=== PATIENT | male | born 1965 | race Two or more races ===

== ENCOUNTER 2020-01-23 09:17 | Day surgery (SDC) | payer OTHER ==
[~2020-01-23] VITALS: Ht 170.2 cm; Wt 68.0 kg
[2020-01-23] VITALS (10 sets, daily range): BP systolic 101–145; BP diastolic 57–87
--- NOTE | 2020-01-23 07:31 | Operative Note - PDOC ---
Operative Note Operative Note Pre-op Diagnosis: right shoulder rc tear, impingement Procedure: see op report Post-op Diagnosis: same as pre-op plus Operative Findings: consistent w/pre-op dx studies Anesthesia: regional Specimen: none Complications: none Condition: stable Estimated Blood Loss: none Implant(s) used?: No Artis Cunha MD Jan 23, 2020 07:31
--- NOTE | 2020-01-23 07:31 | Pre-Procedure Note/Attestation ---
Pre-Procedure Note/Attestation Complete Prior to Procedure Planned Procedure: right Procedure Narrative: shoulder arthroscopy, sad, possible rc repair Indications for Procedure Pre-Operative Diagnosis: right shoulder rc tear, impingement Attestation I attest that I discussed the nature of the procedure; its benefits; risks and complications; and alternatives (and the risks and benefits of such alternatives ), prior to the procedure, with the patient (or the patient's legal outside sales representative). I attest that, if there was a reasonable possibility of needing a blood transfusion, the patient (or the patient's legal outside sales representative) was given the [facility] standardized written summary, pursuant to the Hoang Stigler Blood Safety Act ([place] Health and Safety Code # 1645, as amended). I attest that I re-evaluated the patient just prior to the surgery and that there has been no change in the patient's H&P, except as documented below: Artis Cunha MD Jan 23, 2020 07:31
[~2020-01-23 09:17] MED LIST: PROBIOTIC1 EAC5 PO; ceFAZolin 1gm IVPB IVPB ONE; celeBREX 200mg Cap **SURGERY PATIENTS ONLY ORAL ONE; oxyCONTIN 20mg tab ORAL ONE
[2020-01-23] MEDS ORDERED: oxyCONTIN 20mg tab ORAL ONE (10:05)
[2020-01-23] MEDS ORDERED: celeBREX 200mg Cap **SURGERY PATIENTS ONLY ORAL ONE (10:05)
[2020-01-23] MEDS ORDERED: Lidocaine 1% MPF 10mg/ml 5ml ONE (11:23)
[2020-01-23] MEDS ORDERED: Dexamethasone 4mg/ml vial ONE ×2 (11:23→11:26)
[2020-01-23] MEDS ORDERED: Propofol 200mg/20ml IV ONE (11:23)
[2020-01-23] MEDS ORDERED: LR 1000ml 1,000 ML IVLG SCH (11:25)
--- NOTE | 2020-01-23 11:26 | Anethesia Preoperative Eval ---
Anesthesia Pre-op PMH/ROS General Date of Evaluation: Jan 23, 2020 Time of Evaluation: 11:57 Anesthesiologist: Kala ASA Score: ASA 2 Mallampati Score Class I : Soft palate, uvula, fauces, pillars visible Class II: Soft palate, uvula, fauces visible Class III: Soft palate, base of uvula visible Class IV: Only hard plate visible Mallampati Classification: Class II Surgeon: Alphonse Diagnosis: R Shoulder Pain Surgical Procedure: R Shoulder Arthroscopy Anesthesia History: none Family History: no anesthesia problems Allergies: Coded Allergies: No Known Allergies (Unverified , 01/21/20) Medications: see eMAR Patient NPO?: Yes Anesthesia Pre-op Phys. Exam Physician Exam Last Vital Signs Date Time Temp Pulse Resp B/P (MAP) Pulse Ox O2 Delivery O2 Flow Rate FiO2 01/23/20 09:53 Room Air 01/23/20 09:50 97.1 58 18 133/79 97 Constitutional: NAD Neurologic: CN 2-12 intact Cardiovascular: RRR Respiratory: CTA Gastrointestinal: S/NT/ND Airway Exam Mallampati Score: Class II MO: full ROM: full Teeth: missing Dentures: upper Anesthesia Pre-op A/P Risk Assessment & Plan Assessment: ASA 2 Plan: GA, SED, R Supraclavicular Block Status Change Before Surgery: No Pre-Antibiotics Dru Gram Ancef IV Given Within 1 Hr of Incision: Yes Time Given: 12:41 Leonel Armendariz MD Jan 23, 2020 11:26
[2020-01-23] MEDS ORDERED: Ropivacaine 5mg/ml Vial 20ml INJ ONE (11:27)
[2020-01-23] MEDS ORDERED: oxyCODONE HCL/Acetaminophen 5/325mg ORAL PRN (11:30)
[2020-01-23] MEDS ORDERED: Labetalol 5mg/ml 20ml vial IV PRN (11:30)
[2020-01-23] MEDS ORDERED: DiphenhydrAMINE 50mg/ml Inj IVP PRN (11:30)
[2020-01-23] MEDS ORDERED: HYDROcodone/Acetamin 7.5/325 tab ORAL PRN (11:30)
[2020-01-23] MEDS ORDERED: LORazepam Inj 2mg/ml 1ml IV PRN (11:30)
[2020-01-23] MEDS ORDERED: Hydromorphone 0.5mg/0.5ml inj IVP PRN (11:30)
[2020-01-23] MEDS ORDERED: Midazolam 2mg/2ml Inj IVP PRN (11:30)
[2020-01-23] MEDS ORDERED: Ketorolac 30mg Inj IV PRN ×2 (11:30)
[2020-01-23] MEDS ORDERED: HYDROcodone/Acetamin 5/325 tab ORAL PRN ×2 (11:30→20:18)
[2020-01-23] MEDS ORDERED: Atropine Sulfate 0.4mg/ml inj IVP PRN (11:30)
[2020-01-23] MEDS ORDERED: Meperidine 25mg/0.5ml Inj (FOR RIGORS ONLY) IV PRN (11:30)
[2020-01-23] MEDS ORDERED: fentaNYL 100 mcg/2 mL IV PRN (11:30)
[2020-01-23] MEDS ORDERED: Metoclopramide 10mg/2ml Inj IVP PRN (11:30)
[2020-01-23] MEDS ORDERED: Sterile Water Irrig 1000ml IRRIG ONE (12:00)
[2020-01-23] MEDS ORDERED: LR 1000ml ONE (12:00)
[2020-01-23] MEDS ORDERED: EPINEPHrine 1mg/1ml Amp ONE (12:12)
[2020-01-23] MEDS ORDERED: Kenalog-40 1ml Vial ONE (12:12)
[2020-01-23] MEDS ORDERED: Ketorolac 30mg Inj ONE (12:12)
[2020-01-23] MEDS ORDERED: Duramorph PF 5mg/10ml amp ONE (12:13)
[2020-01-23] MEDS ORDERED: NS Irrig 4000ml IRRIG ONE ×4 (12:30→13:28)
--- NOTE | 2020-01-23 13:05 | Immediate Post-Op Evaluation ---
Immediate Post-Op Evalulation Immediate Post-Op Evalulation Procedure: R Shoulder Arthroscopy Date of Evaluation: Jan 23, 2020 Time of Evaluation: 14:09 IV Fluids: 600 LR Blood Products: 0 Estimated Blood Loss: 12 Urinary Output: 0 Blood Pressure Systolic: 101 Blood Pressure Diastolic: 57 Pulse Rate: 57 Respiratory Rate: 16 O2 Sat by Pulse Oximetry: 97 Temperature (Fahrenheit): 98.2 Pain Score (1-10): 1 Nausea: No Vomiting: No Complications 0 Patient Status: awake, reacts, patent, none Hydration Status: adequate Dru Gram Ancef IV Given Within 1 Hr of Incision: Yes Time Given: 12:41 Leonel Armendariz MD Jan 23, 2020 13:05
--- NOTE | 2020-01-23 13:06 | 48 Hour Post Anesthesia Eval ---
Post Anesthesia Evaluation Procedure: R Shoulder Arthroscopy Date of Evaluation: Jan 23, 2020 Time of Evaluation: 16:12 Blood Pressure Systolic: 128 0: 74 Pulse Rate: 67 Respiratory Rate: 18 Temperature (Fahrenheit): 98.4 O2 Sat by Pulse Oximetry: 99 Airway: patent Nausea: No Vomiting: No Pain Intensity: 1 Hydration Status: adequate Cardiopulmonary Status: Stable Mental Status/LOC: patient returned to baseline Follow-up Care/Observations: 0 Post-Anesthesia Complications: 0 Follow-up care needed: ready to discharge Leonel Armendariz MD Jan 23, 2020 13:06
[2020-01-23] MEDS ORDERED: Duramorph PF 5mg/10ml amp IT ONE ×2 (13:39→13:45)
--- NOTE | 2020-01-23 18:45 | Operative Note - Dictated ---
DATE OF OPERATION: 01/23/2020 PREOPERATIVE DIAGNOSES: 1. Right shoulder impingement syndrome. 2. Right shoulder rotator cuff tear. POSTOPERATIVE DIAGNOSES: 1. Right shoulder impingement syndrome. 2. Right shoulder rotator cuff tear. PROCEDURE: 1. Right shoulder arthroscopy, extensive intraarticular debridement. 2. Right shoulder arthroscopic rotator cuff repair. 3. Right shoulder subacromial decompression bursectomy. SURGEON: Artis Cunha M.D. ANESTHESIA: Interscalene with general. INDICATION FOR PROCEDURE: The patient is a pleasant 54-year-old gentleman, who has had significant right shoulder pain. The patient had an MRI, which showed possible tear of the rotator cuff. He failed conservative treatment, elected to undergo right shoulder arthroscopy, rotator cuff repair. Risks, limitations, expectations, and complications of procedure were discussed in detail. All questions addressed. DESCRIPTION OF PROCEDURE: After informed consent was obtained, the patient was brought to the operating room. The patient was placed under monitored anesthesia control. Right shoulder was prepped and draped in a sterile manner. Time-out was performed. A posterolateral stab incision was then made. Trocar was introduced into the glenohumeral joint. There was no chondral damage. The anterior labrum was intact along with the superior labrum and the subscapularis. In the footprint, the supraspinatus had an area of complete attachment. The shaver was then placed through this tear and the soft tissue lateral to the articular margin was debrided along with the articular side of the rotator cuff. Once this was done, the camera was placed in the subacromial space. Complete bursectomy was performed. The undersurface of the acromion was identified. Acromioplasty was started from lateral to medial and completed posterior to anterior. Once that was done, the rotator cuff was repaired using 2 Biomet anchors. The camera was repositioned in the glenohumeral joint. The footprint was recreated. The instruments were removed. Portal sites were closed with 3-0 Monocryl sutures. Steri-Strips and a sterile dressing was applied. ESTIMATED BLOOD LOSS: None. COMPLICATIONS: None. SPECIMENS: None. IMPLANTS: Include 2 Biomet JuggerKnot anchors. Artis Cunha M.D. DR: DON JOB#: [id number] CC: [email or web address]
[2020-01-23] MEDS ORDERED: Tylenol #3 tab (300mg/30mg) ORAL PRN (21:01)
[2020-01-23] MEDS ORDERED: D5 1/2NS 1,000 ML IV SCH (21:01)
[2020-01-23] MEDS ORDERED: HYDROmorphone 1mg/ml Carpuject SUBQ PRN (21:01)
== END 2020-01-23 15:35 | disposition home or self-care (01) ==
LOC: SUR 09:17
DX: M75.41 Impingement syndrome of right shoulder (principal); M75.101 Unspecified rotator cuff tear or rupture of right shoulder, not specified as traumatic
CPT/HCPCS: 29823; 29827; C1713; J0171; J0690; J1100; J1885; J2250; J2405; J2704; J2765; J2795; J3301; J7120; 94003; 94150